=== PATIENT | male | born 1970 | race Caucasian/White ===

== ENCOUNTER → 2017-01-03 | Outpatient (CLI) | payer OTHER ==
[~2017-01-03] MED LIST: ALDACTONE PO; ASPIRIN81 M2 PO; CARVEDILOL25 M1 PO; DEPO-TESTO100 MG/1 M SUBQ; METHADONE HCL10 MG PO; NEXIUM20 MG PO; PRINIVIL10 MG PO; PROZAC40 MG PO; VITAMIN B122500 MCG PO; VITAMIN D1000 UNI2 PO; XANAX1 MG PO
--- NOTE | ~2017-01-03 | CR63 ---
[facility] A Service of [facility] & [facility] RADIOLOGY TEXT RESULTS PATIENT: TERE ELLIS LOCATION: [facility] : [birth year] UNIT #: [id number] AGE: [address]: Mike Correa MD SEX: M ORDER DR: [id number] [facility] [address] [place], [place] [address] [id number] O MR#: [id number] Acc #: [id number] NAME: TERE ELLIS : 1970 SEX: M STUDY DATE/TIME: 01/03/2017 7:25 UNIT: [facility] ROOM: STUDY DESCRIPTION: CR Chest 2 View Attending Physician: Mike Correa M.D. Referring Physician: Mike Correa M.D. Ordering Physician: Mike Correa M.D. Primary Care Physician: Adina Blount M.D. MEDICAL IMAGING REPORT This report is preliminary unless electronic signature is present EXAM PA and lateral chest. DATE OF EXAMINATION 01/03/2017 HISTORY Obesity, preop lap band procedure. FINDINGS PA and lateral views were obtained. The cardiovascular configuration is normal. Lungs are clear. Left-sided transvenous pacemaker is in good position. CONCLUSION 1. Status post pacemaker. 2. No active disease. Dictated by... Mike Duran M.D. THIS IS AN ELECTRONICALLY VERIFIED REPORT Mike Duran M.D. at 01/03/2017 3:12 PM BELINDA/bernadine TD: 01/03/2017 14:18 JOB #: [id number] MEDICAL IMAGING REPORT Page 1 of 1 COPY
--- NOTE | ~2017-01-03 | EKG ---
PATIENT: TERE ELLIS UNIT #: [id number] Ventricular Rate: 74 BPM Atrial Rate: 74 BPM P-R Interval: 184 ms QRS Duration: 108 ms Q-T Interval: 378 ms QTC Calculation(Bezet): 419 ms P [place]: 28 degrees Calculated R [place]: 10 degrees Calculated T [place]: 0 degrees Diagnosis Line: Normal sinus rhythm Diagnosis Line: Normal ECG Diagnosis Line: No previous ECGs available Diagnosis Line: Confirmed by PHILIP MOORE MD ([id number]) on 01/08/2017 Diagnosis Line: 2:31:39 PM INTERPRETING MD: OSCAR PULLIAM
--- NOTE | ~2017-01-03 | CR97 ---
[facility] A Service of [facility] RADIOLOGY TEXT RESULTS PATIENT: TERE ELLIS LOCATION: [facility] : 72 UNIT #: [id number] AGE: [address]: Mike Correa MD SEX: M ORDER DR: [id number] [facility] [address] [place], [place] [address] [id number] O MR#: [id number] Acc #: [id number] NAME: TERE ELLIS : 1970 SEX: M STUDY DATE/TIME: 01/03/2017 7:59 UNIT: [facility] ROOM: STUDY DESCRIPTION: CR Esophagram Attending Physician: Mike Correa M.D. Referring Physician: Mike Correa M.D. Ordering Physician: Mike Correa M.D. Primary Care Physician: Adina Blount M.D. MEDICAL IMAGING REPORT This report is preliminary unless electronic signature is present EXAM Esophagram INDICATIONS Preop exam for gastric band placement. FINDINGS Single contrast esophagram was performed. 27 images were obtained. Fluoro time 0.6 minutes. The esophagus demonstrates normal motility. No rings or strictures are seen. There is no hiatal hernia. Of note, the patient has a pacemaker. IMPRESSION Normal single contrast esophagram. Dictated by... Genaro Denis Jr., M.D. THIS IS AN ELECTRONICALLY VERIFIED REPORT Genaro Denis Jr., M.D. at 01/06/2017 5:53 AM RLK/waylon TD: 01/03/2017 20:23 JOB #: [id number] MEDICAL IMAGING REPORT Page 1 of 1 COPY
[2017-01-03 08:40] LABS: HEMATOCRIT 51.5 % (38.0-50.0); MEAN CELL VOLUME 80.4 FL (83-96); MEAN CORPUSCULAR HGB CONC 31.1 g/dL (30-36); MEAN PLATELET VOLUME 9.3 FL (6.5-11.5); RED BLOOD COUNT 6.41 X10e (3.90-5.60); RED CELL DISTRIBUTION WIDTH 16.6 % (11.0-15.5); WHITE BLOOD COUNT 9.7 X10e3 (4.0-10.5)
[2017-01-03 09:05] LABS: ALBUMIN SERUM 3.8 g/dL (3.5-5.0); BILIRUBIN,TOTAL 0.6 mg/dL (0.2-2.0); BUN/CREATININE RATIO 14.44; CALCIUM SERUM 8.9 mg/dL (8.4-10.2); CREATININE SERUM 0.9 mg/dL (0.6-1.4); GLOM FILT RATE Estimated 102.8 mL/min (>60); POTASSIUM 4.6 mmol/L (3.5-5.1); PROTEIN TOTAL SERUM 7.2 g/dL (6.0-8.3)
== END | disposition home or self-care (01) ==
LOC: CRAD 07:21 → CAMB 10:00
PROVIDERS: Surgery
DX: Z01.818 Encounter for other preprocedural examination (principal); Z95.0 Presence of cardiac pacemaker
CPT/HCPCS: 36415; 71020; 74220; 80053; 80061; 84443; 85027; 93005

== ENCOUNTER → 2017-01-15 | Day surgery (SDC) | payer OTHER ==
--- NOTE | ~2017-01-15 | CR7 ---
[facility] A Service of [facility] & [facility] RADIOLOGY TEXT RESULTS PATIENT: TERE ELLIS LOCATION: [facility] : 72 UNIT #: [id number] AGE: [address]: Mike Correa MD SEX: M ORDER DR: [id number] [facility] [address] [place], [place] [address] [id number] O MR#: [id number] Acc #: [id number] NAME: TERE ELLIS : 1970 SEX: M STUDY DATE/TIME: 01/15/2017 10:42 UNIT: [facility] ROOM: STUDY DESCRIPTION: CR Abdomen Single AP View Attending Physician: Mike Correa M.D. Ordering Physician: Mike Correa M.D. Primary Care Physician: Mehul Alarcon M.D. MEDICAL IMAGING REPORT This report is preliminary unless electronic signature is present EXAM KUB HISTORY Postop Lap-Band surgery. TECHNIQUE A single view of the abdomen was obtained. FINDINGS Postoperative changes of Lap-Band surgery are noted. The angle of the band with respect to the long axis of the spine is 58 degrees. No postoperative complication is noted. Normal bowel gas pattern. IMPRESSION Satisfactory postoperative appearance. STAT * RESULT Dictated by... Genaro Pool M.D. THIS IS AN ELECTRONICALLY VERIFIED REPORT Genaro Pool M.D. at 01/15/2017 4:40 PM ZAIDA/melissa TD: 01/15/2017 11:11 JOB #: [id number] MEDICAL IMAGING REPORT Page 1 of 1 COPY
--- NOTE | ~2017-01-15 | OR ---
Unit #: [id number] #: [id number] Patient: TERE ELLIS [id number] [address] [address] [id number] O MR#: [id number] NAME: TERE ELLIS ROOM: Date of Procedure: 01/15/2017 Admission Date: 01/15/2017 Surgeon: Mike Correa M.D. : 1970 Attending Physician: Mike Correa M.D. Primary Care Physician: Mehul Alarcon M.D. OPERATIVE REPORT PREOPERATIVE DIAGNOSIS Chronic morbid obesity, BMI 38. POSTOPERATIVE DIAGNOSES 1. Chronic morbid obesity, BMI 38. 2. Paraesophageal hiatal hernia. PROCEDURES PERFORMED 1. Laparoscopic adjustable gastric band. 2. Laparoscopic paraesophageal hiatal hernia repair. [employer] Chaz River M.D. ANESTHESIA General anesthesia. ESTIMATED BLOOD LOSS Minimal. IV FLUIDS 800 crystalloid. COMPLICATIONS None. INDICATIONS FOR PROCEDURE The patient is a 46-year-old with chronic morbid obesity. DESCRIPTION OF PROCEDURE The patient was taken to the operating room and placed in supine position. General anesthesia was induced. The abdomen was prepped and draped. A 3-cm incision was then made left of the midline. A 10-mm Visiport was then placed intraabdominal under direct vision. The abdomen was insufflated to 15 mmHg with CO2. The patient was then placed in a steep reversed Trendelenburg. General inspection of the abdomen revealed what appeared to be a paraesophageal hernia. This was identified with a defect at the diaphragm using anterior palpation with the instrument. We then made a small incision in the subxiphoid region. A Sander liver retractor was then placed intraabdominal and used to retract the left lobe of the liver upward to further expose the paraesophageal hernia and GE junction. I then placed a 5-mm port in the right upper quadrant, a 10-mm Unit #: [id number] #: [id number] Patient: TERE ELLIS port in the left upper quadrant, and another 5-mm port in the left lower quadrant. The stomach was retracted medial and downward. Upon retracting the stomach, we took down the paraesophageal ligament, exposing the right and left nory at the paraesophageal hernia. Any hernia sac was reduced. We then repaired the paraesophageal hernia using interrupted #0 Ethibond sutures in a vwzvnw-rr-[id number] type fashion. This formed a snug repair to the anterior esophagus. We then retracted the stomach medially and further exposed the angle of His using Bovie electrocautery. The stomach was then retracted laterally. We then took down the hepatogastric ligament with Bovie electrocautery. This exposed the right nory. Using blunt dissection, I created a retrogastric tunnel from this point to the angle of His. The band was then placed intraabdominal through the 10-mm port site. This was then brought through the retrogastric tunnel in a pars flaccida technique. The band was then closed anteriorly to form a 20-mL to 25-mL anterior gastric pouch. The fundus was then secured to the anterior pouch to prevent movement around the stomach using two interrupted #0 Ethibond sutures. A third suture was then used as a gathering stitch from the lesser curve to the anterior stomach, gathering and imbricating the remaining fundus of the stomach. The tubing was then brought out through the midline 10-mm port site. All ports and the Sander liver retractor were removed under direct vision with no evidence of abdominal hemorrhage. A polypropylene mesh was then secured to the posterior face of the laparoscopic band port. This was secured using #0 Ethibond suture. This was then cut to shape. The port was then connected to the tubing and placed into a subcutaneous pocket just anterior to the rectus sheath. Its position was then confirmed. All tubing was then placed intraabdominal. The wounds were then closed with interrupted 4-0 Vicryl. The patient tolerated the procedure well and was sent to the recovery room in good condition. Dictated by... Cristiana Conner/uzair TD: 01/16/2017 06:20 JOB #: [id number] OPERATIVE REPORT Page 1 of 1 X Mike Correa MD PROCEDURE OPERATIVE NOTE
== END | disposition home or self-care (01) ==
LOC: CSUR 07:58
PROVIDERS: Surgery
PROC: 0BQS4ZZ (ICD-10-PCS; 2017-01-15)
PROC: 0DV64CZ Restriction of Stomach with Extraluminal Device, Percutaneous Endoscopic Approach (ICD-10-PCS; principal; 2017-01-15 10:30)
DX: E66.01 Morbid (severe) obesity due to excess calories (principal); Z68.38 Body mass index [BMI] 38.0-38.9, adult; K44.9 Diaphragmatic hernia without obstruction or gangrene; K21.9 Gastro-esophageal reflux disease without esophagitis; Z79.899 Other long term (current) drug therapy; G47.30 Sleep apnea, unspecified; I42.8 Other cardiomyopathies; R06.02 Shortness of breath; E78.5 Hyperlipidemia, unspecified; Z79.82 Long term (current) use of aspirin; Z95.810 Presence of automatic (implantable) cardiac defibrillator; Z82.49 Family history of ischemic heart disease and other diseases of the circulatory system; Z98.890 Other specified postprocedural states
CPT/HCPCS: 74000; C1781; J0330; J0690; J1650; J1885; J2250; J2405; J2710; J3010